=== PATIENT | female | born 1970 | race Hispanic/Latino ===

== ENCOUNTER 2020-09-25 12:13 | Inpatient (IN) | payer MEDICAID, OTHER ==
[~2020-09-25] VITALS: Ht 152.4 cm; Wt 90.9 kg
[~2020-09-25 12:13] MED LIST: ASPI-1005 PO; CARV6.2579 PO; CLOP75TA14 PO; LISI-617 PO; RANI300T4 PO; SIMV-43 PO
[2020-09-25] MEDS ORDERED: ASPIRIN 325 MG TABLET ONE (12:24)
[2020-09-25] MEDS ORDERED: MORPHINE SULFATE 4 MG/1ML SYG ONE (12:32)
[2020-09-25] MEDS ORDERED: NITROGLYCERIN 1GM/1 INCH PACKET TD ONE (12:32)
[2020-09-25] MEDS ORDERED: ONDANSETRON HCL 4 MG/2 ML VIAL ONE (12:32)
[2020-09-25 12:33] LABS: BASOPHILS % (AUTO) 0.6 % (0.0-5.0); EOSINOPHILS % (AUTO) 0.6 % (0.0-8.0); HEMATOCRIT 43.9 % (36-48); LYMPHOCYTES % (AUTO) 34.6 % (21.0-51.0); MEAN CORPUSCULAR HEMOGLOBIN 31.1 pg (27.0-33.0); MEAN CORPUSCULAR HGB CONC 34.2 g/dL (32.0-36.0); MEAN CORPUSCULAR VOLUME 91.1 fL (79-99); MONOCYTES % (AUTO) 5.1 % (3.0-13.0); PLATELET COUNT (AUTO) 316 K/uL (130-400); RED BLOOD CELL COUNT(AUTO) 4.82 MIL/uL (4.00-5.50); WHITE BLOOD COUNT (AUTO) 7.2 K/uL (4.8-10.8)
[2020-09-25 12:41] LABS: CREATININE 0.7 mg/dL (0.5-1.5); POTASSIUM 3.6 mmol/L (3.5-5.1)
[2020-09-25 12:45] LABS: INR 0.99 (0.85-1.15); PROTHROMBIN TIME 10.7 SEC (9.6-11.6)
[2020-09-25 12:47] LABS: ALBUMIN 3.7 g/dL (3.5-5.0); BILIRUBIN,TOTAL 0.4 mg/dL (0.2-1.0)
[2020-09-25 15:57] LABS: APPEARANCE,URINE Cloudy (CLEAR); BILIRUBIN,URINE Negative (NEGATIVE); COLOR,URINE Yellow (YELLOW); GLUCOSE, URINE (UA) Negative (NEGATIVE); KETONES,URINE Negative (NEGATIVE); LEUKOCYTE ESTERASE ,URINE Small (NEGATIVE); NITRATE,URINE Negative (NEGATIVE); OCCULT BLOOD,URINE Negative (NEGATIVE); PH,URINE 5.5 (5.0-8.0); PROTEIN,URINE Trace mg/dL (NEGATIVE)
[2020-09-25] MEDS: LISINOPRIL 10 MG TABLET PO SCH (16:00)
[2020-09-25] MEDS ORDERED: ONDANSETRON HCL 4 MG/2 ML VIAL IV PRN (16:00)
[2020-09-25] MEDS: NITROGLYCERIN 1GM/1 INCH PACKET TD SCH ×2 (16:00→22:28)
[2020-09-25] MEDS ORDERED: ACETAMINOPHEN 325 MG TAB PO PRN (16:00)
[2020-09-25 16:11] LABS: BACTERIA,URINE Few /HPF (None Seen); RBC,URINE 0-1 /HPF (0-1)
[2020-09-25 16:12] LABS: MUCUS,URINE Few LPF (None Seen); SQUAMOUS EPITHELIAL CELL,UR Few /HPF (0-2); TRANSITIONAL EPI CELLS,URINE Rare /HPF (None Seen)
[2020-09-25 16:35] LABS: HEMOGLOBIN A1C 7.2 % (4.0-6.0)
[2020-09-25 17:05] LABS: TROPONIN I 0.15 ng/mL (0.00-0.06)
[2020-09-25] MEDS: FAMOTIDINE/PF 20 MG/2 ML VIAL IV SCH (21:00)
[2020-09-25 22:05] VITALS: BP 135/87
[2020-09-25] MEDS: METOPROLOL TARTRATE 25 MG TAB PO SCH (22:28)
[2020-09-26] VITALS (13 sets, daily range): BP systolic 101–147; BP diastolic 56–88
[2020-09-26 00:45] LABS: BASOPHILS % (AUTO) 0.5 % (0.0-5.0); EOSINOPHILS % (AUTO) 1.7 % (0.0-8.0); HEMATOCRIT 39.8 % (36-48); LYMPHOCYTES % (AUTO) 30.9 % (21.0-51.0); MEAN CORPUSCULAR HEMOGLOBIN 31.1 pg (27.0-33.0); MEAN CORPUSCULAR HGB CONC 33.7 g/dL (32.0-36.0); MEAN CORPUSCULAR VOLUME 92.3 fL (79-99); NEUTROPHILS % (AUTO) 58.7 % (40.0-77.0); PLATELET COUNT (AUTO) 299 K/uL (130-400); RED BLOOD CELL COUNT(AUTO) 4.31 MIL/uL (4.00-5.50); RED CELL DISTRIBUTION WIDTH 12.1 % (11.0-15.5); WHITE BLOOD COUNT (AUTO) 8.2 K/uL (4.8-10.8)
[2020-09-26 01:03] LABS: TROPONIN I 1.36 ng/mL (0.00-0.06)
[2020-09-26] MEDS: LISINOPRIL 10 MG TABLET PO SCH (08:34)
[2020-09-26] MEDS: ASPIRIN 325 MG TABLET PO SCH (08:34)
[2020-09-26] MEDS: NITROGLYCERIN 1GM/1 INCH PACKET TD SCH ×3 (08:35→23:36)
[2020-09-26] MEDS: METOPROLOL TARTRATE 25 MG TAB PO SCH ×2 (08:36→19:44)
[2020-09-26] MEDS: FAMOTIDINE/PF 20 MG/2 ML VIAL IV SCH ×2 (08:36→19:44)
[2020-09-26 08:47] LABS: TROPONIN I 1.44 ng/mL (0.00-0.06)
[2020-09-26] MEDS ORDERED: ENOXAPARIN SODIUM 40 MG/0.4 ML SYRINGE SQ SCH (09:00)
[2020-09-26] MEDS ORDERED: SODIUM CHLORIDE 0.9% 500ML 500 ML IV SCH (09:30)
[2020-09-26 10:40] LABS: INR 0.99 (0.85-1.15); PARTIAL THROMBOPLASTIN TIME 25.5 SEC (26.3-35.5); PROTHROMBIN TIME 10.7 SEC (9.6-11.6)
[2020-09-26] MEDS ORDERED: MIDAZOLAM HCL 1 MG/ML 2ML VIAL ONE (11:25)
[2020-09-26] MEDS ORDERED: HEPARIN SODIUM 1000UNIT/ML 10ML VIAL ONE (11:25)
[2020-09-26] MEDS ORDERED: IOHEXOL 350 MG/ML 100ML INFUS..BTL IV ONE (11:25)
[2020-09-26] MEDS ORDERED: LIDOCAINE HCL 2% 20ML ONE ×2 (11:25→11:55)
[2020-09-26] MEDS ORDERED: IOHEXOL-350 50ML VIAL IV ONE (11:25)
--- NOTE | 2020-09-26 16:42 | NUR ---
[facility] CM met with pt and spouse in room this morning discussed dc plans. Pt is independent prior to admission, lives at home with spouse and 2 sons(16, 22, 36 y/o). Spouse verbalized they have a handicapped restroom w/rails. Denies any other equipments/services. Feels safe to go back home, still drives, spouse able to assist with transportation and needs as necessary. DC plan to home once stable. CM to continue to follow up. Addendum: 09/26/20 at 1644 by ODILIA BLEVINS LVN CM Amended: Links added.
[2020-09-27 03:59] LABS: MEAN CORPUSCULAR HEMOGLOBIN 31.4 pg (27.0-33.0); MEAN CORPUSCULAR HGB CONC 33.9 g/dL (32.0-36.0); MEAN CORPUSCULAR VOLUME 92.8 fL (79-99); RED BLOOD CELL COUNT(AUTO) 4.42 MIL/uL (4.00-5.50); RED CELL DISTRIBUTION WIDTH 12.3 % (11.0-15.5); WHITE BLOOD COUNT (AUTO) 6.2 K/uL (4.8-10.8)
[2020-09-27 04:11] VITALS: BP 119/72
[2020-09-27 04:11] LABS: ALBUMIN 3.1 g/dL (3.5-5.0); BILIRUBIN,TOTAL 0.3 mg/dL (0.2-1.0); CREATININE 0.7 mg/dL (0.5-1.5); POTASSIUM 3.8 mmol/L (3.5-5.1); TOTAL PROTEIN, SERUM 7.3 g/dL (6.0-8.3)
[2020-09-27 04:16] LABS: INR 0.98 (0.85-1.15); PARTIAL THROMBOPLASTIN TIME 24.6 SEC (26.3-35.5); PROTHROMBIN TIME 10.6 SEC (9.6-11.6)
[2020-09-27 08:00] VITALS: BP 118/68
--- NOTE | 2020-09-27 08:00 | NUR ---
AM SHIFT ASSESSMENT, NPO, SURGERY SCHEDULED FOR TODAY.
[2020-09-27] MEDS: ASPIRIN 325 MG TABLET PO SCH ×2 (09:00→15:24)
[2020-09-27] MEDS: LISINOPRIL 10 MG TABLET PO SCH ×2 (09:00→15:24)
--- NOTE | 2020-09-27 10:00 | NUR ---
NO C/O, RESTING. WAITING FOR SURG.
[2020-09-27] MEDS: FAMOTIDINE/PF 20 MG/2 ML VIAL IV SCH ×2 (10:54→21:32)
[2020-09-27] MEDS: NITROGLYCERIN 1GM/1 INCH PACKET TD SCH (10:55)
[2020-09-27] MEDS: METOPROLOL TARTRATE 25 MG TAB PO SCH ×2 (11:02→15:24)
[2020-09-27 11:58] VITALS: BP 135/78
[2020-09-27] MEDS ORDERED: CEFAZOLIN SODIUM 1 GM VIAL IVP PRN (15:00)
--- NOTE | 2020-09-27 15:21 | NUR ---
SURGERY CX. FOR TODAY. WILL GIVE SCHEDULED MEDICATIONS, ORDER CL. LIQ DIET AND NPO AGAIN AT [phone].[phone]
--- NOTE | 2020-09-27 15:29 | NUR ---
CARDIAC DIET ORDERED NOW.QUINTON ALANIZ.
[2020-09-27 15:43] VITALS: BP 136/83
--- NOTE | 2020-09-27 18:00 | NUR ---
NO C/O, NO CHEST PAIN THIS 12 HRS. SX. HAS BEEN RESCHEDULED FOR TOMORROW.
--- NOTE | 2020-09-27 19:10 | NUR ---
PM Assessment Received pt with at the bedside, routine assessment done, plan of care discuss aware CABG was re-schedule in AM, per pt stated she was told scheduled for 0800. Pt then reminded need to be NPO after MN & she need to take a shower again in AM. Per pt stated that she already had a shower today, inform her she need to do it again with a special soap Hibiclens as this is required for someone going for this kind of surgery. I also discuss with pt post op care & management with emphasis on following instructions especially when weaning from ventilator so she can be extubated appropriately, made aware about chest tubes, FC, deferent lines, important of letting her nurse know if she has pain as this will be only given if she ask for it depending on her pain scale. Pt agreed in case she will remain intubated & will be in pain, she will raise up her right hand & make a fist & gesture the pain scale by her fingers. I also emphasize the importance of IS & early ambulation to avoid complication, agreed. I inform pt that I will obtain IS order & have respiratory therapist come & teach her how to do it properly. I also verified when was pt last BM, stated 09/25/2020. I did explained the importance of not being constipated especially post op, agreed to take LOC once am able to obtain order. Pt currently denied discomfort, claimed a little nervous, requested if can stay with her tonight, I spoke with Harshad Ashley RN, approved, pt made aware & stated now she will be more comfortable.
[2020-09-27 20:00] VITALS: BP 120/64
[2020-09-27] MEDS ORDERED: LACTULOSE 20 GM/30 ML UDCUP ONE (22:27)
[2020-09-27] MEDS ORDERED: LACTULOSE 20 GM/30 ML UDCUP PO PRN (22:30)
[2020-09-28] VITALS (17 sets, daily range): BP systolic 113–176; BP diastolic 57–88
[2020-09-28] MEDS: NITROGLYCERIN 1GM/1 INCH PACKET TD SCH (00:09)
--- NOTE | 2020-09-28 01:42 | NUR ---
patient's daughter in law ever biggs phone number [phone] dolly wheeler son [phone] obdulia [phone] only speaks [employer]
--- NOTE | 2020-09-28 02:32 | NUR ---
Gave patient the "Going for Heart Surgery" booklet and "Moving Right Along" booklet in preparation for her cabag surgery today. Patient verbalizes understanding and will go through the booklet. No issues
[2020-09-28 06:37] LABS: HEMATOCRIT 43.2 % (36-48); MEAN CORPUSCULAR HEMOGLOBIN 31.3 pg (27.0-33.0); MEAN CORPUSCULAR HGB CONC 33.3 g/dL (32.0-36.0); MEAN CORPUSCULAR VOLUME 93.9 fL (79-99); PLATELET COUNT (AUTO) 284 K/uL (130-400); RED CELL DISTRIBUTION WIDTH 12.4 % (11.0-15.5); WHITE BLOOD COUNT (AUTO) 7.9 K/uL (4.8-10.8)
[2020-09-28] MEDS ORDERED: PAPAVERINE HCL 30 MG/ML 2ML VIAL ONE (07:14)
[2020-09-28 07:38] LABS: ALBUMIN 3.3 g/dL (3.5-5.0); BILIRUBIN,TOTAL 0.4 mg/dL (0.2-1.0); CREATININE 0.6 mg/dL (0.5-1.5); MAGNESIUM 2.2 mg/dL (1.80-2.40); POTASSIUM 3.7 mmol/L (3.5-5.1); TOTAL PROTEIN, SERUM 7.7 g/dL (6.0-8.3)
[2020-09-28 07:41] LABS: LYMPHOCYTES % (MANUAL) 26 % (22-44); MONOCYTES % (MANUAL) 7 % (2-9); REACTIVE LYMPHOCYTES 5 % (0-0); SEGMENTED NEUTROPHILS % 62 % (40-70)
[2020-09-28 07:42] LABS: MAN.DIFF COMMENT-IMPRESSION MANUAL DIFFERENTIAL; PLATELET MORPHOLOGY COMMENT ADEQUATE
[2020-09-28] MEDS ORDERED: SODIUM BICARB 50MEQ 50ML VIAL 150 ML ONE ×2 (07:46→10:14)
[2020-09-28] MEDS ORDERED: NITROGLYCERIN 50 MG/D5% WATER 1 BOT ONE (07:47)
[2020-09-28] MEDS ORDERED: ROCURONIUM BROMIDE 10MG/1ML 5ML VL ONE (07:53)
[2020-09-28] MEDS ORDERED: CEFUROXIME SODIUM 1.5 GM VIAL ONE (08:02)
[2020-09-28] MEDS ORDERED: NOREPINEPHRINE BITARTRATE 1 MG/1 ML ML IV ONE (08:29)
[2020-09-28] MEDS ORDERED: PROPOFOL 10 MG/ML 20ML VIAL IV ONE (08:29)
[2020-09-28] MEDS ORDERED: SODIUM BICARB 50MEQ 50ML VIAL 100 ML ONE (08:29)
[2020-09-28] MEDS ORDERED: MIDAZOLAM HCL 1 MG/ML 2ML VIAL ONE (08:29)
[2020-09-28] MEDS ORDERED: FENTANYL CITRATE PF 50 MCG/1 ML 20ML VIAL IJ ONE (08:29)
[2020-09-28] MEDS ORDERED: LIDOCAINE PF 2% 5ML ABBOJECT ONE (08:29)
[2020-09-28] MEDS ORDERED: HEPARIN SODIUM 1000UNIT/ML 10ML VIAL ONE ×2 (08:29→09:10)
[2020-09-28] MEDS ORDERED: ESMOLOL HCL 10 MG/ML 10 ML VIAL ONE ×2 (08:29→09:04)
[2020-09-28] MEDS ORDERED: EPINEPHRINE 1 MG/ML AMPULE ONE (08:29)
[2020-09-28] MEDS ORDERED: AMINOCAPROIC ACID 250 MG/ML 20 ML VIAL ONE (08:29)
[2020-09-28] MEDS ORDERED: PROTAMINE SULFATE 10 MG/ML 25ML VIAL IV ONE (08:29)
[2020-09-28] MEDS ORDERED: ROCURONIUM 10MG/1ML SYR 10 MG/ML ML ONE (08:30)
[2020-09-28] MEDS ORDERED: SUCCINYLCHOLINE CHLORIDE 20 MG/ML 10 ML VIAL ONE (08:30)
[2020-09-28] MEDS ORDERED: ETOMIDATE 2 MG/ML 10 ML VIAL ONE (08:30)
[2020-09-28] MEDS ORDERED: METOPROLOL TARTRATE 1 MG/ML 5ML VIAL IV ONE (08:53)
[2020-09-28] MEDS ORDERED: AMIODARONE HCL 50 MG/ML 3 ML VIAL ONE ×2 (08:54→11:01)
[2020-09-28] MEDS ORDERED: VASOPRESSIN 20 UNITS/ML 1ML VIAL ONE (08:57)
[2020-09-28] MEDS: FAMOTIDINE/PF 20 MG/2 ML VIAL IV SCH ×3 (09:00→20:08)
[2020-09-28 09:09] LABS: ABG BASE EXCESS -1.4 mmol/L (-2.0-3.0); ABG HCO3 24.2 mmol/L (21.0-28.0); ABG OXYGEN SATURATION 99.2 % (95.0-99.0); ABG PCO2 44 mmHg (32-45)
[2020-09-28] MEDS ORDERED: ACETAMINOPHEN 325 MG TAB PO PRN (09:30)
[2020-09-28] MEDS ORDERED: MORPHINE SULFATE 2 MG/ML 1ML SYG IV PRN (09:30)
[2020-09-28] MEDS ORDERED: EPINEPHRINE 2 MG in DEXTROSE 5%-WATER 250 ML IV PRN (09:30)
[2020-09-28] MEDS ORDERED: ONDANSETRON HCL 4 MG/2 ML VIAL IV PRN (09:30)
[2020-09-28] MEDS ORDERED: CALCIUM GLUCONATE 1 GM in SODIUM CHLORIDE 0.9% 50 ML IV PRN (09:30)
[2020-09-28] MEDS ORDERED: POTASSIUM PHOS 15 mMOL+NS250ML 250 ML IV PRN (09:30)
[2020-09-28] MEDS ORDERED: NOREPINEPHRINE 4MG/NS 250ML 250 ML IV PRN (09:30)
[2020-09-28] MEDS ORDERED: SODIUM BICARB 50MEQ 50ML VIAL IV PRN (09:30)
[2020-09-28] MEDS ORDERED: PROPOFOL 1000 MG/100 ML 100 ML IV PRN (09:30)
[2020-09-28] MEDS ORDERED: GLUCAGON 1MG KIT 1 MG ML IM PRN (09:30)
[2020-09-28] MEDS ORDERED: SODIUM CHLORIDE 0.9% 500ML 500 ML IV SCH (09:30)
[2020-09-28] MEDS ORDERED: DEXTROSE 50%-WATER 50 ML DISP.SYRIN IV PRN (09:30)
[2020-09-28] MEDS ORDERED: ALBUMIN (HUMAN) 5% 250 ML IV PRN (09:30)
[2020-09-28] MEDS ORDERED: POTASSIUM CHLORIDE 20MEQ/100ML 100 ML IV PRN (09:30)
[2020-09-28] MEDS ORDERED: ACETAMINOPHEN 650 MG SUPPOSITORY RC PRN (09:30)
[2020-09-28] MEDS ORDERED: SODIUM CHLORIDE 0.9% 10 ML VIAL IVP PRN (09:30)
[2020-09-28] MEDS ORDERED: NITROGLYCERIN 50 MG/D5% WATER 250 BOT IV SCH (09:30)
[2020-09-28] MEDS ORDERED: MAGNESIUM 2GM PREMIX 50ML 50 ML IV PRN (09:30)
[2020-09-28] MEDS ORDERED: MORPHINE SULFATE 4 MG/1ML SYG IV PRN (09:30)
[2020-09-28] MEDS: SODIUM CHLORIDE 0.9% 1000ML 1,000 ML IV SCH ×2 (09:30→19:37)
[2020-09-28] MEDS ORDERED: POTASSIUM CHLORIDE 20MEQ/100ML 300 ML IV ONE (09:38)
[2020-09-28 10:07] LABS: ABG BASE EXCESS 1.3 mmol/L (-2.0-3.0); ABG HCO3 27.9 mmol/L (21.0-28.0); ABG OXYGEN SATURATION 99.1 % (95.0-99.0); ABG PCO2 52 mmHg (32-45)
[2020-09-28] MEDS ORDERED: AMINOCAPROIC ACID 15,000 MG in SODIUM CHLORIDE 0.9% 250 ML IV SCH (10:45)
[2020-09-28] MEDS ORDERED: INSULIN REGULAR, HUMAN 3ML 100 UNIT in SODIUM CHLORIDE 0.9% 99 ML IV SCH ×2 (10:46)
[2020-09-28 10:54] LABS: ABG BASE EXCESS 1.7 mmol/L (-2.0-3.0); ABG HCO3 25.6 mmol/L (21.0-28.0); ABG PCO2 38 mmHg (32-45)
[2020-09-28 11:26] LABS: ABG BASE EXCESS 1.1 mmol/L (-2.0-3.0); ABG HCO3 25.1 mmol/L (21.0-28.0); ABG OXYGEN SATURATION 98.9 % (95.0-99.0); ABG PCO2 38 mmHg (32-45)
[2020-09-28] MEDS ORDERED: FENTANYL CITRATE PF 50 MCG/1 ML 5ML AMP IV ONE (11:50)
[2020-09-28 12:53] LABS: HEMATOCRIT 38.6 % (36-48); MEAN CORPUSCULAR HEMOGLOBIN 32.3 pg (27.0-33.0); MEAN CORPUSCULAR HGB CONC 34.5 g/dL (32.0-36.0); MEAN CORPUSCULAR VOLUME 93.7 fL (79-99); RED BLOOD CELL COUNT(AUTO) 4.12 MIL/uL (4.00-5.50); RED CELL DISTRIBUTION WIDTH 12.4 % (11.0-15.5); WHITE BLOOD COUNT (AUTO) 17.9 K/uL (4.8-10.8)
[2020-09-28 12:59] LABS: ABG BASE EXCESS 1.1 mmol/L (-2.0-3.0); ABG HCO3 24.9 mmol/L (21.0-28.0); ABG OXYGEN SATURATION 98.1 % (95.0-99.0); ABG PCO2 37 mmHg (32-45)
[2020-09-28 13:06] LABS: ABG OXYGEN SATURATION 80.9 % (95.0-99.0); BASE EXCESS,VENOUS BLOOD GAS 0.2 (-2.0-3.0); HCO3,VENOUS BLOOD GAS 25.3 (21.0-28.0); PCO2,VENOUS BLOOD GAS 43 (32-45)
[2020-09-28 13:10] LABS: CREATININE 0.8 mg/dL (0.5-1.5); MAGNESIUM 1.4 mg/dL (1.80-2.40); PHOSPHORUS 3.4 mg/dL (2.5-4.9); POTASSIUM 4.2 mmol/L (3.5-5.1)
[2020-09-28 13:11] LABS: INR 1.08 (0.85-1.15); PARTIAL THROMBOPLASTIN TIME 22.9 SEC (26.3-35.5); PROTHROMBIN TIME 11.6 SEC (9.6-11.6)
[2020-09-28] MEDS: CEFAZOLIN SODIUM 1 GM VIAL IV SCH ×2 (14:19→22:05)
[2020-09-28 14:26] LABS: ABG BASE EXCESS 1.4 mmol/L (-2.0-3.0); ABG HCO3 24.9 mmol/L (21.0-28.0); ABG OXYGEN SATURATION 98.7 % (95.0-99.0); ABG PCO2 36 mmHg (32-45)
[2020-09-28] MEDS: TRAMADOL HCL 50 MG TABLET PO PRN ×2 (16:15→21:59)
[2020-09-28 16:40] LABS: ABG BASE EXCESS 1.3 mmol/L (-2.0-3.0); ABG HCO3 27.2 mmol/L (21.0-28.0); ABG OXYGEN SATURATION 97.1 % (95.0-99.0); ABG PCO2 48 mmHg (32-45)
[2020-09-28 18:10] LABS: ABG BASE EXCESS 0.3 mmol/L (-2.0-3.0); ABG HCO3 25.8 mmol/L (21.0-28.0); ABG OXYGEN SATURATION 97.4 % (95.0-99.0); ABG PCO2 45 mmHg (32-45)
[2020-09-29] VITALS (24 sets, daily range): BP systolic 104–137; BP diastolic 55–78
[2020-09-29] MEDS: ACETAMINOPHEN 325 MG TAB PO PRN ×2 (01:21→19:40)
[2020-09-29] MEDS: TRAMADOL HCL 50 MG TABLET PO PRN ×3 (04:04→22:03)
[2020-09-29 04:21] LABS: ABG BASE EXCESS 3.1 mmol/L (-2.0-3.0); ABG HCO3 28.7 mmol/L (21.0-28.0); ABG OXYGEN SATURATION 96.3 % (95.0-99.0); ABG PCO2 47 mmHg (32-45)
[2020-09-29 04:40] LABS: BASOPHILS % (AUTO) 0.2 % (0.0-5.0); EOSINOPHILS % (AUTO) 0.6 % (0.0-8.0); HEMATOCRIT 40.6 % (36-48); LYMPHOCYTES % (AUTO) 10.8 % (21.0-51.0); MEAN CORPUSCULAR HEMOGLOBIN 31.5 pg (27.0-33.0); MEAN CORPUSCULAR VOLUME 95.3 fL (79-99); MONOCYTES % (AUTO) 8.7 % (3.0-13.0); NEUTROPHILS % (AUTO) 79.4 % (40.0-77.0); PLATELET COUNT (AUTO) 261 K/uL (130-400); RED BLOOD CELL COUNT(AUTO) 4.26 MIL/uL (4.00-5.50); RED CELL DISTRIBUTION WIDTH 12.8 % (11.0-15.5); WHITE BLOOD COUNT (AUTO) 11.4 K/uL (4.8-10.8)
[2020-09-29 04:52] LABS: CREATININE 0.6 mg/dL (0.5-1.5); INR 1.06 (0.85-1.15); PARTIAL THROMBOPLASTIN TIME 24.3 SEC (26.3-35.5); PHOSPHORUS 4.2 mg/dL (2.5-4.9); PROTHROMBIN TIME 11.4 SEC (9.6-11.6)
[2020-09-29] MEDS: CEFAZOLIN SODIUM 1 GM VIAL IV SCH (06:15)
[2020-09-29] MEDS: FAMOTIDINE/PF 20 MG/2 ML VIAL IV SCH ×4 (08:40→19:47)
[2020-09-29] MEDS: ASPIRIN 325 MG TABLET PO SCH (08:40)
[2020-09-29] MEDS: FUROSEMIDE 20 MG TABLET PO SCH ×2 (11:47→16:52)
[2020-09-29] MEDS: ATORVASTATIN CALCIUM 40 MG TABLET PO SCH (19:39)
[2020-09-30] VITALS (11 sets, daily range): BP systolic 106–130; BP diastolic 57–78
[2020-09-30] MEDS: ACETAMINOPHEN 325 MG TAB PO PRN (00:25)
[2020-09-30 04:40] LABS: HEMATOCRIT 35.5 % (36-48); MEAN CORPUSCULAR HEMOGLOBIN 30.9 pg (27.0-33.0); MEAN CORPUSCULAR HGB CONC 32.1 g/dL (32.0-36.0); MEAN CORPUSCULAR VOLUME 96.2 fL (79-99); RED BLOOD CELL COUNT(AUTO) 3.69 MIL/uL (4.00-5.50); RED CELL DISTRIBUTION WIDTH 12.6 % (11.0-15.5); WHITE BLOOD COUNT (AUTO) 11.1 K/uL (4.8-10.8)
[2020-09-30 04:54] LABS: CREATININE 0.6 mg/dL (0.5-1.5); MAGNESIUM 1.9 mg/dL (1.80-2.40); POTASSIUM 3.5 mmol/L (3.5-5.1)
[2020-09-30] MEDS: POTASSIUM CHLORIDE 20MEQ/100ML 100 ML IV PRN ×2 (04:58→06:05)
[2020-09-30] MEDS: INSULIN HUMULIN R 100 UNIT/ML 3ML SQ SCH ×3 (07:30→21:00)
[2020-09-30] MEDS: FAMOTIDINE/PF 20 MG/2 ML VIAL IV SCH ×3 (09:00→21:00)
[2020-09-30] MEDS ORDERED: FAMOTIDINE 20MG TAB 20 MG TAB ONE (10:11)
[2020-09-30] MEDS: ASPIRIN 325 MG TABLET PO SCH (10:17)
[2020-09-30] MEDS: FUROSEMIDE 20 MG TABLET PO SCH (10:17)
--- NOTE | 2020-09-30 19:49 | NUR ---
RIJ CHORDIS AND FC REMOVED PER ORDER. RIJ WITHOUT REDNESS DRAINAGE OR EDEMA. OCCLUSIVE DRSG APPLIED AFTER. PROCEDURE EXPLAINED BEFORE HAND.
[2020-09-30] MEDS: FAMOTIDINE 20MG TAB 20 MG TAB PO SCH (21:14)
[2020-09-30] MEDS: ATORVASTATIN CALCIUM 40 MG TABLET PO SCH (21:14)
--- NOTE | 2020-09-30 23:00 | NUR ---
REPORT CALLED TO [facility]
--- NOTE | 2020-09-30 23:43 | NUR ---
PATIENT ARRIVED TO ROOM VIA WHEELCHAIR. PATIENT DENIES ANY COMPLAINTS OF PAIN OR DISCOMFORT AT PRESENT. SIDE RAILS UP TIMES 2, CALL TELLEZ WITHIN REACH. MIDLINE DRESSING CLEAN, DRY AND INTACT. ALL LOBES DIMINISHED BREATH SOUNDS, BOWEL SOUNDS HYPOACTIVE, PATIENT STATING PASSING FLATUS. MONITOR IN PLACE, PATIENT SINUS HEART RATE 94/
[2020-10-01] VITALS (7 sets, daily range): BP systolic 106–126; BP diastolic 59–78
[2020-10-01 05:58] LABS: BASOPHILS % (AUTO) 0.2 % (0.0-5.0); EOSINOPHILS % (AUTO) 0.6 % (0.0-8.0); HEMATOCRIT 32.4 % (36-48); LYMPHOCYTES % (AUTO) 14.8 % (21.0-51.0); MEAN CORPUSCULAR HEMOGLOBIN 31.3 pg (27.0-33.0); MEAN CORPUSCULAR HGB CONC 33.3 g/dL (32.0-36.0); MEAN CORPUSCULAR VOLUME 93.9 fL (79-99); MONOCYTES % (AUTO) 5.5 % (3.0-13.0); NEUTROPHILS % (AUTO) 78.5 % (40.0-77.0); PLATELET COUNT (AUTO) 214 K/uL (130-400); RED BLOOD CELL COUNT(AUTO) 3.45 MIL/uL (4.00-5.50); RED CELL DISTRIBUTION WIDTH 12.2 % (11.0-15.5); WHITE BLOOD COUNT (AUTO) 8.3 K/uL (4.8-10.8)
[2020-10-01 06:18] LABS: BILIRUBIN,TOTAL 0.6 mg/dL (0.2-1.0); CREATININE 0.4 mg/dL (0.5-1.5); MAGNESIUM 1.8 mg/dL (1.80-2.40); POTASSIUM 3.6 mmol/L (3.5-5.1)
[2020-10-01] MEDS: INSULIN HUMULIN R 100 UNIT/ML 3ML SQ SCH ×4 (06:32→20:29)
[2020-10-01] MEDS: FAMOTIDINE/PF 20 MG/2 ML VIAL IV SCH ×2 (09:00→19:44)
[2020-10-01] MEDS: FUROSEMIDE 20 MG TABLET PO SCH ×3 (09:00→18:07)
[2020-10-01] MEDS: ASPIRIN 325 MG TABLET PO SCH (10:12)
[2020-10-01] MEDS: FAMOTIDINE 20MG TAB 20 MG TAB PO SCH ×2 (10:12→20:31)
[2020-10-01] MEDS ORDERED: POTASSIUM CHLORIDE 20 MEQ ERTAB PO ONE (11:13)
[2020-10-01] MEDS ORDERED: POTASSIUM CHLORIDE 10% ELIXIR 20 MEQ/15 ML UDCUP PO PRN (11:15)
[2020-10-01] MEDS: TRAMADOL HCL 50 MG TABLET PO PRN ×2 (11:18→21:44)
[2020-10-01] MEDS: POTASSIUM CHLORIDE 20 MEQ ERTAB PO PRN (15:29)
[2020-10-01] MEDS: ATORVASTATIN CALCIUM 40 MG TABLET PO SCH (20:31)
[2020-10-02 04:27] VITALS: BP 107/67
[2020-10-02] MEDS: INSULIN HUMULIN R 100 UNIT/ML 3ML SQ SCH ×4 (05:56→21:00)
[2020-10-02 06:48] LABS: BASOPHILS % (AUTO) 0.3 % (0.0-5.0); EOSINOPHILS % (AUTO) 2.1 % (0.0-8.0); HEMATOCRIT 32.5 % (36-48); LYMPHOCYTES % (AUTO) 28.2 % (21.0-51.0); MEAN CORPUSCULAR HEMOGLOBIN 30.9 pg (27.0-33.0); MEAN CORPUSCULAR HGB CONC 32.9 g/dL (32.0-36.0); MEAN CORPUSCULAR VOLUME 93.9 fL (79-99); NEUTROPHILS % (AUTO) 62.1 % (40.0-77.0); PLATELET COUNT (AUTO) 254 K/uL (130-400); RED BLOOD CELL COUNT(AUTO) 3.46 MIL/uL (4.00-5.50); RED CELL DISTRIBUTION WIDTH 12.4 % (11.0-15.5)
[2020-10-02 07:03] LABS: BILIRUBIN,TOTAL 0.4 mg/dL (0.2-1.0); CREATININE 0.5 mg/dL (0.5-1.5); POTASSIUM 3.5 mmol/L (3.5-5.1)
[2020-10-02] MEDS: FAMOTIDINE/PF 20 MG/2 ML VIAL IV SCH ×2 (09:00→20:58)
[2020-10-02 09:13] VITALS: BP 116/70
[2020-10-02] MEDS: FAMOTIDINE 20MG TAB 20 MG TAB PO SCH ×2 (09:42→20:58)
[2020-10-02] MEDS: ASPIRIN 325 MG TABLET PO SCH (09:43)
[2020-10-02] MEDS: METOPROLOL TARTRATE 25 MG TAB PO SCH ×2 (09:44→20:58)
[2020-10-02] MEDS: FUROSEMIDE 20 MG TABLET PO SCH ×2 (09:44→18:25)
[2020-10-02] MEDS ORDERED: FURO20TA6 PO (10:53)
[2020-10-02] MEDS ORDERED: METO25 PO (10:53)
[2020-10-02] MEDS ORDERED: ATOR40TA69 PO (10:53)
[2020-10-02] MEDS ORDERED: ASPI-1012 PO (10:53)
[2020-10-02 12:18] VITALS: BP 115/71
[2020-10-02] MEDS ORDERED: LACTULOSE 20 GM/30 ML UDCUP PO SCH (12:18)
[2020-10-02] MEDS ORDERED: POLYETHYLENE GLYCOL 3350 17 GM POWD.PACK PO SCH (12:19)
[2020-10-02] MEDS: POTASSIUM CHLORIDE 20 MEQ ERTAB PO PRN ×2 (12:27→18:25)
[2020-10-02 16:00] VITALS: BP 115/79
[2020-10-02 19:30] VITALS: BP 113/63
[2020-10-02] MEDS: ATORVASTATIN CALCIUM 40 MG TABLET PO SCH (20:58)
[2020-10-02 23:48] VITALS: BP 110/61
[2020-10-03 03:52] VITALS: BP 107/69
[2020-10-03 05:54] LABS: BASOPHILS % (AUTO) 0.3 % (0.0-5.0); EOSINOPHILS % (AUTO) 3.3 % (0.0-8.0); HEMATOCRIT 34.3 % (36-48); LYMPHOCYTES % (AUTO) 26.8 % (21.0-51.0); MEAN CORPUSCULAR HEMOGLOBIN 31.2 pg (27.0-33.0); MEAN CORPUSCULAR HGB CONC 33.5 g/dL (32.0-36.0); MONOCYTES % (AUTO) 5.9 % (3.0-13.0); PLATELET COUNT (AUTO) 288 K/uL (130-400); RED BLOOD CELL COUNT(AUTO) 3.69 MIL/uL (4.00-5.50); RED CELL DISTRIBUTION WIDTH 12.1 % (11.0-15.5); WHITE BLOOD COUNT (AUTO) 6.9 K/uL (4.8-10.8)
[2020-10-03 06:23] LABS: ALBUMIN 2.1 g/dL (3.5-5.0); BILIRUBIN,TOTAL 0.4 mg/dL (0.2-1.0); CREATININE 0.5 mg/dL (0.5-1.5); MAGNESIUM 1.9 mg/dL (1.80-2.40); POTASSIUM 3.8 mmol/L (3.5-5.1); TOTAL PROTEIN, SERUM 6.5 g/dL (6.0-8.3)
[2020-10-03] MEDS: INSULIN HUMULIN R 100 UNIT/ML 3ML SQ SCH ×2 (06:38→11:30)
[2020-10-03 08:00] VITALS: BP 128/74
[2020-10-03] MEDS ORDERED: POLYETHYLENE GLYCOL 3350 17 GM POWD.PACK PO SCH (09:00)
[2020-10-03] MEDS: FAMOTIDINE/PF 20 MG/2 ML VIAL IV SCH (09:00)
[2020-10-03] MEDS: FUROSEMIDE 20 MG TABLET PO SCH (11:22)
[2020-10-03] MEDS: FAMOTIDINE 20MG TAB 20 MG TAB PO SCH (11:22)
[2020-10-03] MEDS: ASPIRIN 325 MG TABLET PO SCH (11:22)
[2020-10-03] MEDS: METOPROLOL TARTRATE 25 MG TAB PO SCH (11:23)
[2020-10-03 12:04] VITALS: BP 113/60
[2020-10-03 16:00] VITALS: BP 116/74
--- NOTE | 2020-10-03 16:30 | NUR ---
PT AWAKE AND ALERT, DC HOME INSTRUCTIONS GIVEN TO PT, ACKNOWLEDGED ALL INFORMATION, ALL QUESTIONS ANSWERED, MADE AWARE RX SENT ELECTRONICALLY TO PHARMACY AND WRITTEN RX GIVEN TO PT ALSO. MADE AWARE TO RETURN TO ER OR DIAL 911 IN CASE OF EMERGENCY.
--- NOTE | 2020-10-04 16:30 | NUR ---
FOLLOW UP CALL T/C PLACED TO PATIENT, SAID HAS PICKED UP PRESCRIPTIONS AND HAS ALREADY STARTED TAKING THEM, REVIEWED FOLLOW UP APPT. INFORMED WILL GIVE LOCAL PHONE NUMBER TO CARDIO THORACIC SURGEON'S OFFICE.
== END 2020-10-03 17:20 | disposition home or self-care (01) | DRG 233 ==
LOC: EDH 12:13 → OBSVTOIN 16:00 → EDHIP 16:00 → 4AH 22:01 → 2CH 09-28 08:00 → 4DH 09-30 23:16
PROVIDERS: ADMIT Internal Medicine; ATTEND Internal Medicine
PROC: 4A023N7 Measurement of Cardiac Sampling and Pressure, Left Heart, Percutaneous Approach (ICD-10-PCS; principal; 2020-09-26)
PROC: B2151ZZ Fluoroscopy of Left Heart using Low Osmolar Contrast (ICD-10-PCS; 2020-09-26)
PROC: B2111ZZ Fluoroscopy of Multiple Coronary Arteries using Low Osmolar Contrast (ICD-10-PCS; 2020-09-26)
PROC: 02100Z9 Bypass Coronary Artery, One Artery from Left Internal Mammary, Open Approach (ICD-10-PCS; 2020-09-28)
PROC: 021009W Bypass Coronary Artery, One Artery from Aorta with Autologous Venous Tissue, Open Approach (ICD-10-PCS; 2020-09-28)
PROC: 06BQ0ZZ Excision of Left Saphenous Vein, Open Approach (ICD-10-PCS; 2020-09-28)
DX: I21.4 Non-ST elevation (NSTEMI) myocardial infarction (principal); J95.1 Acute pulmonary insufficiency following thoracic surgery; I50.31 Acute diastolic (congestive) heart failure; I16.0 Hypertensive urgency; E78.5 Hyperlipidemia, unspecified; I25.10 Atherosclerotic heart disease of native coronary artery without angina pectoris; E11.9 Type 2 diabetes mellitus without complications; E78.00 Pure hypercholesterolemia, unspecified; I11.0 Hypertensive heart disease with heart failure; E66.9 Obesity, unspecified; Z68.39 Body mass index [BMI] 39.0-39.9, adult; I25.2 Old myocardial infarction; Z79.899 Other long term (current) drug therapy; Z91.19 Patient's noncompliance with other medical treatment and regimen; Z83.3 Family history of diabetes mellitus; Z82.5 Family history of asthma and other chronic lower respiratory diseases; Z82.3 Family history of stroke; Z82.0 Family history of epilepsy and other diseases of the nervous system; Z82.49 Family history of ischemic heart disease and other diseases of the circulatory system
CPT/HCPCS: 36415; 36600; 71045; 80048; 80053; 80061; 81001; 82435; 82550; 82803; 82947; 82948; 83036; 83605; 83735; 83874; 83880; 84100; 84132; 84295; 84484; 85018; 85025; 85027; 85610; 85730; 86850; 86900; 86901; 86922; 87088; 93005; 93306; 93356; 93458; 93880; 94002; 94010; 97039; A4357; A7048; C1760; C1894; G0378; J0171; J0282; J0330; J0690; J0697; J1644; J1650; J1815; J2001; J2250; J2270; J2405; J2440; J2704; J2720; J3010; J3475; J3480; J3490; J7030; J7040; J7050; J7060; J7120; Q9967

== ENCOUNTER 2023-10-09 11:48 | Emergency (ER) | payer MEDICAID, OTHER ==
[~2023-10-09] VITALS: Ht 154.9 cm; Wt 88.5 kg
[~2023-10-09 11:48] MED LIST changes: -ASPI-1005 PO; +ASPI-1012 PO; +ATOR40TA69 PO; -CARV6.2579 PO; -CLOP75TA14 PO; +FURO20TA6 PO; -LISI-617 PO; +METO25 PO; -RANI300T4 PO; -SIMV-43 PO
[2023-10-09 12:28] VITALS: BP 161/84; PULSE 74; RESP 18; O2SAT 96
== END 2023-10-09 13:28 | disposition home or self-care (01) ==
LOC: EDH 11:48
DX: S09.8XXA Other specified injuries of head, initial encounter (principal); R22.0 Localized swelling, mass and lump, head; I10 Essential (primary) hypertension; E11.9 Type 2 diabetes mellitus without complications; E78.00 Pure hypercholesterolemia, unspecified; Z79.82 Long term (current) use of aspirin; Z79.899 Other long term (current) drug therapy; Z98.890 Other specified postprocedural states; X58.XXXA Exposure to other specified factors, initial encounter; Y93.89 Activity, other specified; Y92.89 Other specified places as the place of occurrence of the external cause; Y99.8 Other external cause status
CPT/HCPCS: 99282